=== PATIENT | male | born 1965 | race African-American/Black ===

== ENCOUNTER → 2016-10-21 | Outpatient (CLI) | payer OTHER ==
[2016-03-20 09:14] VITALS: BP 136/90
--- NOTE | 2016-10-21 11:00 | KCIC ---
CT Abdomen and Pelvis without contrast History: Left flank pain, microscopic hematuria Technique: Noncontrast CT imaging was performed of the abdomen and pelvis. Multiplanar images are reviewed. Exposure: One or more of the following individualized dose reduction techniques were utilized for this examination: 1. Automated exposure control 2. Adjustment of the mA and/or kV according to patient size 3. Use of iterative reconstruction technique. Comparison: None Findings: There are fat-containing Bochdalek hernias bilaterally.Accurate evaluation of abdominal visceral organs is limited without intravenous contrast. There is no obvious abnormality of the spleen or pancreas. Tiny 0.5 cm hypodense lesion of the left lobe of the liver is difficult to characterize although small cyst is favored. There is no adrenal nodularity. No urolithiasis or hydronephrosis is identified. There are few small subcentimeter inguinal lymph nodes bilaterally, also some small nodes along the iliac chains. Accurate evaluation of bowel is limited without oral contrast. There is no significant free air, free fluid, bowel dilatation. There is umbilical hernia with neck on the order of 1.9 cm, contains a short segment of the nondilated small bowel. There are some scattered colonic diverticula without evidence of diverticulitis. There is a small focus of nonspecific sclerosis of the anterior left L5 vertebral body, possibly bone island although cannot otherwise be accurately characterized. There is incomplete fusion of the posterior elements of the sacrum. Impression: 1. There is no urolithiasis or hydronephrosis. 2. There is umbilical hernia containing a short segment of nondilated small bowel. 3. There is mild colonic diverticulosis. 4. There is incomplete fusion of the posterior elements of the sacrum. Electronically signed by: Moses Davidson MD (10/21/2016 10:57 AM)
== END | disposition home or self-care (01) ==
LOC: KCIC CT 09:39
PROVIDERS: ATTEND Family Medicine
DX: K42.9 Umbilical hernia without obstruction or gangrene (principal); K57.30 Diverticulosis of large intestine without perforation or abscess without bleeding; R10.9 Unspecified abdominal pain; R31.29 Other microscopic hematuria
CPT/HCPCS: 74176